=== PATIENT | male | born 1995 | race Caucasian/White ===

== ENCOUNTER 2024-08-03 16:04 | Emergency (ER) | payer OTHER ==
[~2024-08-03] VITALS: Ht 182.9 cm; Wt 111.0 kg
[2024-08-03 19:28] LABS: BASO # 0.1 10^3/uL (0.0-0.2); BASO % 0.8 % (0.0-1.0); EOS # 0.1 10^3/uL (0.0-0.5); EOS % 1.1 % (0.0-3.0); HEMOGLOBIN 16.1 g/dl (13.5-17.5); LYMPH # 3.2 10^3/uL (1.5-5.0); LYMPH % 29.7 % (24.0-44.0); MEAN CORPUSCULAR HEMOGLOBIN 30.6 pg (27.0-33.0); MEAN CORPUSCULAR HGB CONC 34.3 g/dl (32.0-36.5); MEAN CORPUSCULAR VOLUME 89.4 fl (80.0-96.0); MONO # 0.8 10^3/uL (0.0-0.8); MONO % 7.6 % (2.0-8.0); NEUTROPHILS # 6.4 10^3/uL (1.5-8.5); NEUTROPHILS % 60.5 % (36.0-66.0); PLATELET COUNT, AUTOMATED 339 10^3/uL (150-450); RED BLOOD COUNT 5.26 10^6/uL (4.30-6.10); WHITE BLOOD COUNT 10.6 10^3/uL (4.0-10.0)
[2024-08-03 19:41] LABS: INR 0.9; LIPASE 31 U/L (12-53); PARTIAL THROMBOPLASTIN TIME 29.8 SECONDS (24.8-34.2); PROTHROMBIN TIME 12.4 SECONDS (12.5-14.5)
[2024-08-03 19:42] LABS: AMYLASE 39 U/L (30-118)
[2024-08-03 19:43] LABS: ALBUMIN 4.4 G/DL (3.2-5.2); ALKALINE PHOSPHATASE 97 U/L (40-129); ALT/SGPT 45 U/L (7.0-40); AST/SGOT 21 U/L (<34); BILIRUBIN,DIRECT 0.2 MG/DL (<0.4); BILIRUBIN,TOTAL 0.6 MG/DL (0.3-1.2); BLOOD UREA NITROGEN 12 MG/DL (9-23); CALCIUM LEVEL 9.4 MG/DL (8.5-10.1); CARBON DIOXIDE LEVEL 27 MMOL/L (20-31); CHLORIDE LEVEL 110 MMOL/L (98-107); CREATININE FOR GFR 1.34 MG/DL (0.70-1.30); GLOMERULAR FILTRATION RATE > 60.0 (>60); GLUCOSE, FASTING 88 MG/DL (60-100); POTASSIUM SERUM 4.5 MMOL/L (3.5-5.1); SODIUM LEVEL 143 MMOL/L (136-145); TOTAL PROTEIN 7.9 G/DL (5.7-8.2)
[2024-08-03] MEDS: NS (Normal Saline) 0.9% 1,000 ML IV ONE (22:50)
[2024-08-03] MEDS: ACETAMINOPHEN 325 MG TAB PO ONE (22:50)
[2024-08-03] MEDS ORDERED: ISOVUE-370 76% 100ML VIAL As Ordered ONE (22:54)
[2024-08-04] VITALS: BP 133/87; TEMP 97; O2SAT 97
== END 2024-08-04 00:16 | disposition home or self-care (01) ==
LOC: M ED 16:04
DX: K92.2 Gastrointestinal hemorrhage, unspecified (principal); N20.0 Calculus of kidney; K57.30 Diverticulosis of large intestine without perforation or abscess without bleeding; K76.0 Fatty (change of) liver, not elsewhere classified; K58.9 Irritable bowel syndrome, unspecified; M54.9 Dorsalgia, unspecified
CPT/HCPCS: 74177; 80048; 80076; 82150; 83605; 83690; 85025; 85610; 85730; 86850; 86900; 86901; 93041; 99285; Q9967